=== PATIENT | male | born 1960 | race Caucasian/White ===

== ENCOUNTER 2017-11-20 05:42 | Day surgery (SDC) | payer BC, OTHER ==
[2017-11-19 12:16] VITALS: BMI 28.2
[2017-11-20] MEDS ORDERED: CEFAZOLIN/Water 2 GM/20 ML SYRINGE ONE (06:15)
[2017-11-20] MEDS ORDERED: Thrombin 5000 UNITS/5 ML VIAL ONE (06:17)
[2017-11-20] MEDS ORDERED: Sodium Chloride 0.9% 10 ML ONE (06:17)
[2017-11-20] MEDS ORDERED: Bupivacaine HCl 0.5%/Epinephrine 1:200,000/PF 30 ml Vial ONE (06:17)
[2017-11-20 06:36] LABS: Hemoglobin 16.5 g/dL (14.0-18.0); Mean Corpuscular HGB CONC 34.6 g/dL (32.0-36.0); Mean Corpuscular Hemoglobin 32.7 pg (27.0-31.0); Mean Corpuscular Volume 94.6 fl (80.0-94.0); Mean Platelet Volume 6.6 fL (7.4-10.4); PTT 32.2 SEC (22.9-36.1); Platelet Count 327 thou/uL (130-400); Prothrombin Time 13.7 SEC (12.0-14.7); RBC Distribution Width 12.2 % (11.5-14.5); Red Blood Cell (RBC) Count 5.05 mill/uL (4.70-6.10)
[2017-11-20] MEDS ORDERED: Midazolam HCl 2 mg/2 ml Vial ONE (06:49)
[2017-11-20] MEDS ORDERED: Ondansetron HCl/PF 4 MG/2 ML Vial ONE (06:50)
[2017-11-20] MEDS ORDERED: Fentanyl 250 MCG/5 ML VIAL ONE (06:50)
[2017-11-20 06:55] LABS: Anion Gap 16 mmol/L (10-20); BUN (Urea Nitrogen) 15 mg/dL (8.4-25.7); Calc. Creatinine Clearance 120 mL/min (70-130); Calcium 9.5 mg/dL (7.8-10.44); Carbon Dioxide 22 mmol/L (22-29); Chloride 103 mmol/L (98-107); Estimated GFR-MDRD Greater than 90; Glucose 109 mg/dL (70-105); Potassium 4.5 mmol/L (3.5-5.1); Sodium 136 mmol/L (136-145)
[2017-11-20] MEDS ORDERED: Fentanyl 100 MCG/2 ML VIAL ONE (09:20)
--- NOTE | 2017-11-20 09:57 | OP ---
DATE OF PROCEDURE: 11/20/2017 SURGEON: Ilsa Gorman M.D. EXECUTIVE SECRETARY: Vic Bryan PA-C. PREOPERATIVE INDICATION: Treat pain, prevent neurological deterioration. 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 OPERATIVE PROCEDURE: Partial hemilaminectomy, medial facetectomy, foraminotomy at L4-5 and L5-S1, mi crodiskectomy at L5-S1, all on the left side, operating microscope. PREOPERATIVE MEDICATION: Ancef 2 grams IV. DRAIN NUMBER: Zero. DRAIN TYPE: None. OPERATIVE DICTATION: The patient was brought to the operating room. General endotracheal anesthesia was induced. The patient was positioned prone with his chest and hips supported by gel-filled chest rolls. A lateral fluoro radiograph was used to plan our incision. The lumbar skin was sterilely pr epped and draped. We opened with a 10 blade knife and controlled bleeding with bipolar and monopolar cautery. We used monopolar cautery to dissect through subcutaneous tissues to thoracodorsal fascia. We incised the fascia left of the midline and reflected the paraspinal muscles off the spinous proc ess and lamina of L4, L5, and S1 to the left side. A lateral fluoro radiograph confirmed the levels upon which we were operating. We then used a Leksell and Kerrison rongeurs to fashion a partial tevin laminectomy and medial facetectomy on the left at L4-5 and L5-S1. The operating microscope was broug ht into the field. Under microscopic magnification and using microsurgical techniques, we removed the yellow ligament in each of the two interspaces. We identified the common thecal sac and the lateral nerve root medial to the pedicle. At L5-S1 we gently retracted the S1 nerve root medially over an intervertebral disk herniation in the ventral epidural space. We incised the disk herniation. We reduced it and removed it in piecemeal fashion. We reached into the interspace and removed loose fragments of disk from th e interspace. The remainder of the disk was firmly adherent to the endplates. We irrigated copious with bacitracin irrigation. We ensured the S1 nerve root was free by performing a foraminotomy over it and by mobilizing it medially and laterally to make sure there was no further stretch on the root. From the L5-S1 space we performed a small foraminotomy over the exiting point of the L5 nerve root and then move the operating microscope to visualize L4-5 interspace. Here we removed the yellow liga ment. We performed a medial facetectomy. We decompressed the L5 nerve root across the disk and perf ormed a foraminotomy from above as well. We made sure a ball probe could pass through the lateral re cess and out the foramen without impingement. We then performed a small foraminotomy to allow the L4 nerve root to exit without impingement. We irrigated again copiously with bacitracin irrigation. W e made sure ball probe could pass out each foramen without impingement along with the L4-5 and S1 ner ve roots. We waxed the bone edges, controlled bleeding and infused local anesthetic in the paraspina l muscles. We closed the wound in anatomic layers. We applied a sterile dressing. This was a clean case and no contamination.
[2017-11-20] MEDS ORDERED: Acetaminophen/Codeine 30-300mg Tablet ONE (10:48)
[2017-11-20] MEDS ORDERED: Morphine 4 MG/ML VIAL ONE (11:59)
[2017-11-20] MEDS ORDERED: Cyclobenzaprine 10 MG TAB ONE (12:43)
[2017-11-20] MEDS ORDERED: Ondansetron ODT 4 MG TAB ONE (13:16)
== END 2017-11-20 13:30 | disposition home or self-care (01) ==
LOC: SDC 05:42
PROVIDERS: ATTEND Neurological Surgery
PROC: 0SB20ZZ Excision of Lumbar Vertebral Disc, Open Approach (ICD-10-PCS; principal; 2017-11-20)
PROC: 01NB0ZZ Release Lumbar Nerve, Open Approach (ICD-10-PCS; principal; 2017-11-20)
DX: M51.27 Other intervertebral disc displacement, lumbosacral region (principal); M48.07 Spinal stenosis, lumbosacral region
CPT/HCPCS: 76001; 80048; 85027; 85610; 85730; 96374; A4216; J0670; J2250; J2270; J2405; J3010; J3370; J3490; Q0162